=== PATIENT | female | born 1935 | race Caucasian/White ===

== ENCOUNTER 2017-06-29 10:46 | Outpatient (CLI) | payer OTHER | END 2017-06-29 10:47 | disposition critical access hospital (66) | LOC: EMS 10:46 | PROVIDERS: ATTEND Surgery | DX: R42 Dizziness and giddiness (principal); R53.1 Weakness | CPT/HCPCS: A0425; A0429 ==

== ENCOUNTER 2017-06-29 10:57 | Observation (INO) | payer OTHER ==
[2017-06-29 12:08] LABS: BASOPHILS # (AUTO) 0.1 10^3/uL (0.0-0.1); BASOPHILS % (AUTO) 0.7 %; EOSINOPHILS # (AUTO) 0.2 10^3/uL (0.0-0.7); EOSINOPHILS % (AUTO) 1.7 %; HGB - HEMOGLOBIN 13.9 g/dL (12.0-16.0); LYMPHOCYTES # (AUTO) 2.9 10^3/uL (1.5-3.5); LYMPHOCYTES % (AUTO) 29.8 %; MEAN CORPUSCULAR HEMOGLOBIN 31.3 pg (27.0-31.0); MEAN CORPUSCULAR HGB CONC 35.4 g/dL (32.0-36.0); MEAN CORPUSCULAR VOLUME 88.4 fL (81.0-99.0); MEAN PLATELET VOLUME 8.9 fL (7.9-10.8); MONOCYTES # (AUTO) 0.7 10^3/uL (0.0-1.0); MONOCYTES % (AUTO) 7.4 %; NEUTROPHILS # (AUTO) 5.9 10^3/uL (1.5-6.6); NEUTROPHILS % (AUTO) 60.4 %; PLT - PLATELET COUNT 281 10^3/uL (130-450); RED BLOOD COUNT 4.43 10^6/uL (4.20-5.40); RED CELL DISTRIBUTION WIDTH 14.2 % (12.0-15.0); WHITE BLOOD COUNT 9.8 x10^3/uL (4.8-10.8)
[2017-06-29 12:46] LABS: BILIRUBIN,TOTAL 0.4 mg/dL (0.2-1.0); CALCIUM 9.1 mg/dL (8.5-10.3); TOTAL PROTEIN 7.5 g/dL (6.7-8.2)
[2017-06-29 12:49] LABS: ALBUMIN/GLOBULIN RATIO 1.1 (1.0-2.2); CREATININE 0.8 mg/dL (0.4-1.0)
[2017-06-29 13:08] LABS: BILIRUBIN,URINE NEGATIVE (NEGATIVE); GLUCOSE, URINE (UA) NEGATIVE (NEGATIVE); KETONES,URINE (UA) NEGATIVE (NEGATIVE); LEUKOCYTE ESTERASE, URINE TRACE (NEGATIVE); NITRITE,URINE NEGATIVE (NEGATIVE); OCCULT BLOOD,URINE NEGATIVE (NEGATIVE); PH,URINE 6.5 PH (5.0-7.5); PROTEIN,URINE NEGATIVE (NEGATIVE); UROBILINOGEN,URINE 0.2 (NORMAL) E.U./dL (NORMAL)
[2017-06-29 13:09] LABS: CLARITY,URINE CLEAR (CLEAR)
[2017-06-29 13:19] LABS: BACTERIA,URINE Rare /HPF (None Seen); RBC,URINE 0-5 /HPF (0-5); SQUAMOUS EPITHELIAL CELL,UR FEW Squamous (<= Few)
--- NOTE | 2017-06-29 13:41 | ED Physician Documentation ---
PD HPI SYNCOPE - Stated complaint Stated Complaint: NEAR SYNCOPE - Chief complaint Chief Complaint: General - History obtained from History obtained from: Patient - History of Present Illness Witnessed: Unwitnessed Timing - onset: Today (about 10 am) Duration: Minutes (symptoms improved enroute to ED and feeling essentially gone just after arrival, so about 30-45 minutes of it.) Preceding symptoms: None. No: Headache, Chest pain, Abdominal pain, Nausea / vomiting, Generalized weakness Associated symptoms: No: Seizure, Incontinant of urine Contributing factors: No: Recent med change, Decreased PO intake, Noxious stimulae, Just stood up (she was standing in kitchen, and felt onset of dizziness, off balance, legs felt wobbly. No headache. She said she could not keep balance and did fall to side and struck head. No LOC. Slight blurry vision , no loss of vision. Was able to get to phone and call 911; was able to talk clearly to them.) Injury occurred: Fell Similar symptoms before: Has not had sx before Recently seen: Not recently seen Review of Systems Constitutional: denies: Fever, Chills Eyes: reports: Decreased vision. denies: Loss of vision, Photophobia, Discharge Ears: denies: Loss of hearing, Ear pain, Drainage/discharge, Tinnitus/ringing Nose: denies: Rhinorrhea / runny nose, Congestion Throat: denies: Sore throat Cardiac: denies: Chest pain / pressure, Palpitations Respiratory: denies: Cough GI: denies: Abdominal Pain, Nausea, Vomiting, Diarrhea : denies: Dysuria, Frequency Skin: denies: Rash, Lesions Neurologic: reports: Head injury (after feeling dizzy and off balance.). denies : Focal weakness, Numbness, Confused, Altered mental status, Headache Endocrine: denies: Weight loss Immunocompromised: denies: Immunocompromised PD PAST MEDICAL HISTORY - Past Medical History Past Medical History: Yes Cardiovascular: High cholesterol, Murmur Neuro: Peripheral neuropathy Derm: Herpes zoster - Past Surgical History /DIRECTOR [place]: Hysterectomy, Oophrectomy, Mastectomy Cardiovascular: Valve replacement - Present Medications Home Medications: Ambulatory Orders Medication Instructions Recorded Confirmed Multivit-Min/Iron Fum/Folic AC 1 tab PO DAILY 06/29/17 06/29/17 [Ijwoo-Hqjjdfy-Jyclffzj Tablet] Pregabalin [Lyrica] 75 mg PO DAILY 06/29/17 06/29/17 Rosuvastatin Calcium [Crestor] 5 mg PO DAILY 06/29/17 06/29/17 rOPINIRole [Requip] 1 mg PO QPM 06/29/17 06/29/17 - Allergies Allergies/Adverse Reactions: Allergies Allergy/AdvReac Type Severity Reaction Status Date / Time No Known Drug Allergies Allergy Verified 06/29/17 11:02 - Social History Does the pt smoke?: No Smoking Status: Never smoker Does the pt drink ETOH?: No Does the pt have substance abuse?: No PD ED PE NORMAL - Vitals Vital signs reviewed: Yes - General General: Alert and oriented X 3, No acute distress, Well developed/nourished - HEENT HEENT: PERRL, EOMI (no nystagmus), Pharynx benign, Other (incidental lipoma back of head, not tender. There is local area of swelling and tender left occiput without bleeding. ) - Neck Neck: Supple, no meningeal sign, No adenopathy - Cardiac Cardiac: RRR, No murmur - Respiratory Respiratory: Clear bilaterally - Abdomen Abdomen: Soft, Non tender - Back Back: No CVA TTP - Derm Derm: Normal color, Warm and dry - Extremities Extremities: No deformity, No tenderness to palpate, Normal ROM s pain, No edema , No calf tenderness / cord - Neuro Neuro: Alert and oriented X 3, publicist 2-12 intact, No motor deficit, No sensory deficit, Normal speech, Other (seems unsteady with gait in room. ) Eye Opening: Spontaneous Motor: Obeys Commands Verbal: Oriented GCS Score: 15 - Psych Psych: Normal mood Results - Vitals Vitals: Vital Signs - 24 hr 06/29/17 06/29/17 06/29/17 11:02 12:57 15:10 Temperature 36.4 C L 36.2 C L Heart Rate 68 68 75 Respiratory 18 18 Rate Blood Pressure 155/81 H 149/84 H 121/73 O2 Saturation 95 95 94 Oxygen O2 Source Room air - Labs Labs: Laboratory Tests 06/29/17 06/29/17 06/29/17 11:40 11:42 11:54 WBC 9.8 RBC 4.43 Hgb 13.9 Hct 39.2 MCV 88.4 MCH 31.3 H MCHC 35.4 RDW 14.2 Plt Count 281 MPV 8.9 Neut # 5.9 Lymph # 2.9 Cascade # 0.7 Eos # 0.2 Baso # 0.1 Absolute Nucleated RBC 0.01 Nucleated RBC % 0.1 Sodium Potassium Chloride Carbon Dioxide Anion Gap BUN Creatinine Estimated GFR (MDRD) Glucose POC Whole Bld Glucose 106 H Calcium Total Bilirubin AST ALT Alkaline Phosphatase Total Protein Albumin Globulin Albumin/Globulin Ratio Lipase Urine Color YELLOW Urine Clarity CLEAR Urine pH 6.5 Ur Specific [place] 1.015 Urine Protein NEGATIVE Urine Glucose (UA) NEGATIVE Urine Ketones NEGATIVE Urine Occult Blood NEGATIVE Urine Nitrite NEGATIVE Urine Bilirubin NEGATIVE Urine Urobilinogen 0.2 (NORMAL) Ur Leukocyte Esterase TRACE H Urine RBC 0-5 Urine WBC 0-3 Ur Squamous Epith Cells FEW Squamous Urine Bacteria Rare Ur Microscopic Review INDICATED Urine Culture Comments INDICATED 06/29/17 12:22 WBC RBC Hgb Hct MCV MCH MCHC RDW Plt Count MPV Neut # Lymph # Cascade # Eos # Baso # Absolute Nucleated RBC Nucleated RBC % Sodium 138 Potassium 3.7 Chloride 106 Carbon Dioxide 22 Anion Gap 10.0 BUN 12 Creatinine 0.8 Estimated GFR (MDRD) 69 L Glucose 112 H POC Whole Bld Glucose Calcium 9.1 Total Bilirubin 0.4 AST 44 H ALT 39 Alkaline Phosphatase 90 Total Protein 7.5 Albumin 4.0 Globulin 3.5 Albumin/Globulin Ratio 1.1 Lipase 11 L Urine Color Urine Clarity Urine pH Ur Specific [place] Urine Protein Urine Glucose (UA) Urine Ketones Urine Occult Blood Urine Nitrite Urine Bilirubin Urine Urobilinogen Ur Leukocyte Esterase Urine RBC Urine WBC Ur Squamous Epith Cells Urine Bacteria Ur Microscopic Review Urine Culture Comments - Rads (name of study) head CT Radiology: Prelim report reviewed (no acute bleeding) PD MEDICAL DECISION MAKING - ED course Complexity details: reviewed results (CT without acute findings; unable to get MRI this afternoon.), considered differential (she had abrupt cerebellar signs/ vertigo but also off balance and fell to side; was not related to position change. Concering for posterior TIA and I feel she needs TIA workup. ), d/w patient, d/w [employer] consultant (hospitalist) Departure - Departure Disposition: ED Place in Observation Clinical Impression: Cerebellar ataxia, Acute posterior circulation transient ischemic attack Condition: Stable Record reviewed to determine appropriate education?: Yes Discharge Date/Time: 06/29/17 17:25
--- NOTE | 2017-06-29 15:14 | CT Preliminary Report ---
Exam: CT HEAD W/O IMPRESSION: 1. No acute intracranial abnormality with age-related generalized volume loss and chronic microvascul ar white matter ischemic changes. 2. Small scalp hematoma in the left posterior parietal region. 3. Probable epidermal inclusion cyst over the left posterior parietal scalp as well as larger resumed general inclusion cyst near the vertex, right of midline. These findings should be amenable to physi xi exam. [facility] SITE ID: [id number]
--- NOTE | 2017-06-29 15:22 | CT Report ---
EXAM: CT HEAD EXAM DATE: 06/29/2017 03:02 PM. CLINICAL HISTORY: Dizzy and fell, struck head. COMPARISON: None. TECHNIQUE: Multiaxial CT images were obtained from the foramen magnum to the vertex. Reformats: Coron al. IV contrast: None. In accordance with CT protocol optimization, one or more of the following dose reduction techniques w ere utilized for this exam: automated exposure control, adjustment of mA and/or KV based on patient s ize, or use of iterative reconstructive technique. FINDINGS: Parenchyma: No intraparenchymal hemorrhage. No evidence of mass, midline shift, or CT findings of acu te infarction. Rogel-white differentiation is distinct. Diffuse chronic microangiopathic white matter changes are evident. Extraaxial Spaces: Normal for age. No subdural or epidural collections identified. Ventricles: The ventricles and cortical sulci are enlarged, consistent with age-related tissue loss. Sinuses and orbits: Imaged paranasal sinuses, orbits, and mastoids show no significant abnormality. Bones: No evidence of fracture or calvarial defect. Other: Partially visualized well-circumscribed ovoid lesion within the scalp with minimal underlying remodeling of the outer table of the calvarium without erosion or periosteal reaction measuring at le ast 20 x 21 x 13 mm, internally hyperdense, could represent an acute hematoma, or complex likely shannon gn skin lesion such as an epidermal inclusion cyst/pilar cyst. Additional smaller well-circumscribed ovoid lesion within the subcutaneous fat of the scalp, likely communicating with the overlying epider mis along the left posterior parietal skull without underlying abnormality of the outer table measure s up to 8 mm with minimal internal calcification, likely an epidermal inclusion cyst (3/20). -Probable more organized scalp hematoma with mildly hyperdense ovoid focus over the left parietal reg ion measuring up to 10 mm with underlying small ill-defined scalp hematoma (3/28). IMPRESSION: 1. No acute intracranial abnormality with age-related generalized volume loss and chronic microvascul ar white matter ischemic changes. 2. Small scalp hematoma in the left posterior parietal region. 3. Probable epidermal inclusion cyst over the left posterior parietal scalp as well as larger presume d epidermal inclusion cyst near the vertex, right of midline. These findings should be amenable to ph ysical exam. [facility] Referring Provider Line: [phone] SITE ID: [id number]
[2017-06-29] MEDS ORDERED: SODIUM CHLORIDE FLUSH 0.9% 10 ML SYRINGE IVP PRN (16:37)
[2017-06-29] MEDS ORDERED: ACETAMINOPHEN 325 MG TABLET PO PRN (16:37)
--- NOTE | 2017-06-29 19:53 | MRI Report ---
EXAM: MRI BRAIN WITHOUT CONTRAST EXAM DATE: 06/29/2017 06:51 PM. CLINICAL HISTORY: 81-year-old woman with abrupt and dizziness beginning a few hours ago. COMPARISON: Noncontrast head CT done earlier the same day. TECHNIQUE: Multiplanar, multisequence T1-weighted and fluid-sensitive MR sequences of the brain were performed. Sequences optimized for routine evaluation. Other: None. IV Contrast: None. FINDINGS: Parenchyma: Small, irregular focus of apparent restricted diffusion with minimal or no corresponding FLAIR hyperintensity is present in the left inferior midbrain (image 10, series 503), concerning for acute lacunar infarct. This lesion measures approximately 7 x 3 mm in maximum axial dimensions. The remainder of the parenchyma demonstrates mild burden of nonspecific FLAIR hyperintensities in the deep cerebral and periventricular white matter as well as the angélica, most consistent with sequelae of chronic small vessel ischemic disease and a common finding in this age group. No evidence of prior h emorrhage on susceptibility weighted sequence. Pituitary: Small in size but otherwise unremarkable. Ventricles and Extra-axial Spaces: Ventricles are symmetric and normal in size for age. Extra-axial s paces are unremarkable. Orbits: Unremarkable. Sinuses: Mild scattered mucosal thickening is present in the sphenoid sinus. Mastoid air cells are cl ear. Major Vascular Flow Voids: Intact. Other: Mixed density scalp lesions are better demonstrated on the earlier CT. IMPRESSION: 1. Small hyperacute or acute lacunar infarct (less than 24 hours) in the left midbrain. No hemorrhage . [facility] The above findings were discussed with Evelin, The patient's nurse by Dr. Carlos A Almanzar at 19:5 1 hrs on 06/29/17. Referring Provider Line: [phone] SITE ID: [id number]
[2017-06-29] MEDS: SODIUM CHLORIDE FLUSH 0.9% 10 ML SYRINGE IVP SCH (19:58)
[2017-06-29] MEDS ORDERED: rOPINIRole 1 MG TABLET PO SCH (21:00)
[2017-06-29] MEDS ORDERED: ATORVASTATIN 10 MG TABLET PO SCH (21:00)
[2017-06-29] MEDS ORDERED: PREGABALIN 25 MG CAPSULE PO SCH (21:00)
--- NOTE | 2017-06-29 21:30 | HISTORY & PHYSICAL EXAMINATION ---
DATE OF SERVICE: 06/29/2017 Physician: Fern Flowers MD HISTORY OF PRESENT ILLNESS: This is an 81-year-old white female with a history of peripheral neuropathy and hyperlipidemia. The patient presents with sudden onset of dizziness, feeling off balance, and she fell to the side and struck her head, but had no syncope. There was no other neurologic complaints such as change of vision, change in sensation or motor control, and she was able to call 911 and speak clearly. Her symptoms resolved during presentation to the emergency room and have not repeated. She underwent a head CT, which was negative for an acute finding and no bleed was found where she had hit her head. She is being placed in observation for evaluation of a posterior cerebellar TIA. PAST MEDICAL HISTORY 1. Peripheral neuropathy. 2. Hyperlipidemia. ALLERGIES: NONE. MEDICATIONS AT HOME 1. Multivitamin. 2. Lyrica, unknown dose daily. 3. Crestor, unknown dose daily. 4. Requip, unknown dose daily. SOCIAL HISTORY: She is nonsmoker, never smoked. She uses no alcohol or substance abuse. REVIEW OF SYSTEMS: Comprehensive review of systems was performed and the pertinent findings are as above. FAMILY HISTORY: No inherited diseases. PHYSICAL EXAMINATION GENERAL: Elderly, white female. She is in no distress. VITAL SIGNS: Blood pressure 150/80, heart rate is in the 70s. She is in sinus rhythm, afebrile, room air saturation 94%. HEENT: Unremarkable. She has moist oral mucosa. NECK: Shows no JVD, no carotid bruits. LUNGS: Clear. HEART: Sounds have I-II/ systolic murmur. No gallop or heave. ABDOMEN: Soft, positive bowel sounds, nontender. No organomegaly. EXTREMITIES: Show no clubbing, cyanosis, or edema. NEUROLOGIC: No focal findings currently with normal [id number] and reflexes. LABORATORIES: Normal electrolytes. Normal BUN and creatinine. AST 44, ALT 39, lipase normal. CBC normal. Urinalysis shows trace leukocyte esterase and rare bacteria. IMAGING: Head CT: No intraparenchymal hemorrhage, mass effect, midline shift, or infarction. She has an ovoid lesion on the scalp with minimal underlying remodeling, which could be an acute hematoma. IMPRESSION/DIAGNOSES 1. Ataxia, which is concerning for a transient ischemic attack. 2. Peripheral neuropathy. 3. Heart murmur. 4. Elevated cholesterol. 5. Head injury with hematoma. PLAN: Place the patient in observation on telemetry to monitor for atrial fibrillation. Redo brain imaging with brain MRI and MRA in order to have clear visualization for a stroke location. Evaluate for sources of embolus such as with carotid Doppler and with echocardiogram. Echocardiogram also for the heart murmur. Begin antiplatelet agents using aspirin. Obtain lipid panel and treat per guidelines. Deep venous thrombosis prophylaxis: Sequential compression devices. CODE STATUS: FULL CODE. ATTESTATION: The patient is expected to be discharged or transferred to another facility within 96 hours: Yes. TD: 06/29/2017 21:29
[2017-06-30] MEDS: SODIUM CHLORIDE FLUSH 0.9% 10 ML SYRINGE IVP SCH ×2 (00:06→09:15)
[2017-06-30 07:40] VITALS: BP 136/63
[2017-06-30] MEDS ORDERED: FAMOTIDINE 20 MG TABLET PO SCH (09:00)
[2017-06-30] MEDS ORDERED: POLYETHYLENE GLYCOL 3350 17 GM PACKET PO SCH (09:00)
[2017-06-30] MEDS ORDERED: CLOPIDOGREL 300 MG TABLET PO ONE (14:13)
--- NOTE | 2017-06-30 14:39 | Discharge Plan ---
Discharge Plan Disposition: 01 Home, Self Care Condition: Stable Prescriptions: Clopidogrel [Plavix] 75 mg PO DAILY #30 tablet Diet: Cardiac Activity Restrictions: Activity as Tolerated Instruction Topics: Clopidogrel Bisulfate Oral tablet No Smoking: If you smoke, Please STOP! Call for help. Follow-up with: Lito Boykin MD [Primary Care Provider] -
--- NOTE | 2017-06-30 17:14 | DISCHARGE SUMMARY ---
Physician: Crystal Weir MD DATE OF ADMISSION: 06/29/2017 DATE OF DISCHARGE: 06/30/2017 DISCHARGE DIAGNOSIS: Acute cerebrovascular accident. PAST MEDICAL HISTORY/SECONDARY DIAGNOSES 1. Peripheral neuropathy. 2. Dyslipidemia. 3. Restless leg syndrome. DISCHARGE MEDICATIONS New medication added: Plavix 75 mg p.o. daily. Following medications continued unchanged: 1. Lyrica 75 mg at night. 2. Requip 1 mg p.o. at bedtime. 3. Crestor 5 mg p.o. daily. CONDITION AT DISCHARGE: The patient was alert, oriented, and hemodynamically stable. Neurologically she was nonfocal. Ambulated in her room. She verbalized understanding of discharge plan and followup. DISCHARGE RECOMMENDATIONS 1. Continue medications as prescribed. Start Plavix for secondary stroke protection. 2. Follow up with the primary care physician, appointment is set for 2017. 3. Return precautions were given. Notably, the patient's symptoms resolved. She had no deficit following a small stroke, and she is discharged in stable condition, does not need physical therapy or occupational therapy. Diagnostic workup: laboratories were unremarkable. Urinalysis was negative. Echocardiogram showed normal systolic function, grade 1/mild diastolic dysfunction, no significant valvular abnormality. CT scan of the brain was negative; however, MRI showed an acute/subacute small lacunar infarct in the left mid brain. PRIMARY CARE PHYSICIAN: Dr. Boykin. BRIEF PRESENTATION AND HOSPITAL COURSE: The patient is a pleasant, fully functional 81-year-old white female who was admitted to [facility] under observation status on 06/29/2017. Her initial workup was negative, and she was hemodynamically stable. Her symptoms included ataxia, and it was suspected that she either had a TIA or a small stroke. She underwent complete stroke workup, and MRI showed a tiny left midbrain stroke. By the time of discharge, all symptoms resolved, and the patient was discharged in stable condition with the above recommendations. Time spent on the discharge was less than 30 minutes. cc: Lito Boykin MD TD: 06/30/2017 16:59 MTDD
[2017-07-01] MEDS ORDERED: CLOPIDOGREL 75 MG TABLET PO SCH (09:00)
== END 2017-06-30 15:32 | disposition home or self-care (01) ==
LOC: ED 10:57 → OBS 16:37
PROVIDERS: ADMIT Internal Medicine; ATTEND Internal Medicine
DX: I63.9 Cerebral infarction, unspecified (principal); R27.0 Ataxia, unspecified; G62.9 Polyneuropathy, unspecified; R01.1 Cardiac murmur, unspecified; E78.5 Hyperlipidemia, unspecified; S00.93XA Contusion of unspecified part of head, initial encounter; W18.30XA Fall on same level, unspecified, initial encounter; Y92.000 Kitchen of unspecified non-institutional (private) residence as the place of occurrence of the external cause; Z79.899 Other long term (current) drug therapy; Z95.2 Presence of prosthetic heart valve
CPT/HCPCS: 36415; 70450; 70551; 80053; 81001; 83690; 85025; 87086; 93005; 93306; 99284; A9270; G0378; 81003